=== PATIENT | male | born 1930 | race Caucasian/White ===

== ENCOUNTER 2019-09-06 12:54 | Emergency (ER) | payer MEDICARE, BC ==
[~2019-09-06] VITALS: Ht 175.3 cm; Wt 100.9 kg
[~2019-09-06 12:54] MED LIST: ACCOLATE 220 MG/1 TA PO; ALDACTONE 25MG25 M1 PO; ALLEGRA 180MG180 MG PO; AMLOPIDINE PO; ASPIR-LOW81 MG PO; ASPIRIN 32325 MG/TAB PO; ASPIRIN 81M81 MG/TA2 PO; ASPIRIN E.C. 8181 MG PO; ATENOLOL25 MG PO; ATROVENTNS0.03% NS; BENICAR40 MG PO; BETAPACE 120MG120 MG PO; BETAPACE AF120 MG PO; CARDIZEM120 MG PO; CEPHALEXIN250 M1 PO; CLARITIN REDITA10 MG PO; CORDARONE200 MG/TAB PO; COUMADIN4 MG PO; DIPROLENE AF GEL15GM TP; DIPROLENE OI 15GM TOP; ENALAPRIL5 MG PO; EPA FISH OIL1 SGL PO; FISH OIL CONC1000 MG PO; FLONASE NASAL S16 GM NS; FLONASEALLERGY NS; FUROSEMIDE20 MG PO; HYDROCORTISO28.35 G1 TP; IMDUR 30MG30 MG/TAB PO; IMDUR 60MG60 MG/TAB PO; KLOR-CON 1010 MEQ PO; KLOR-CON M2020 MEQ PO; LASIX 20MG TABL20 MG PO; LIPITOR 80MG80 MG PO; MIRALAX 255 GM255 GM PO; MIRALAX PA17 GM/Dose PO; NIASPAN 500MG500 MG PO; NITROSTAT0.4 MG/TAB SL; NORCO 325 MG-51 TAB PO; OMEGA 31000 MG PO; PLAVIX 75MG TAB75 MG PO; PRAVACHOL80 MG PO; PROTONIX 40MG T40 MG PO; PROTOP 0.03% 30GM TP; ULTRAM 50MG TAB50 MG PO; VASOTEC 5MG5 MG/TAB PO; WARFARIN SODIUM4 MG PO; ZESTRIL2.5 MG PO; ZETIA10 MG PO; ZOCOR40 MG PO
[2019-09-06 12:59] VITALS: TEMP 98.1
[2019-09-06] MEDS ORDERED: ALDACTONE 25MG25 M1 PO (13:05)
[2019-09-06 15:23] VITALS: BP 126/64; PULSE 60
== END 2019-09-06 15:23 | disposition home or self-care (01) ==
LOC: COL.ER 12:54
DX: S06.0X0A Concussion without loss of consciousness, initial encounter (principal); S01.01XA Laceration without foreign body of scalp, initial encounter; I48.91 Unspecified atrial fibrillation; I25.10 Atherosclerotic heart disease of native coronary artery without angina pectoris; R40.2412 Glasgow coma scale score 13-15, at arrival to emergency department; Z79.82 Long term (current) use of aspirin; Z79.51 Long term (current) use of inhaled steroids; W01.198A Fall on same level from slipping, tripping and stumbling with subsequent striking against other object, initial encounter

== ENCOUNTER → 2020-02-26 | Outpatient (CLI) | payer MEDICARE, BC | LOC: ZCOL.LAB 13:26 | DX: R51 Headache (principal) ==

== ENCOUNTER → 2021-03-11 | Outpatient (CLI) | payer MEDICARE, BC | LOC: ZCOL.LAB 17:05 | DX: T81.89XA Other complications of procedures, not elsewhere classified, initial encounter (principal) ==